=== PATIENT | male | born 1945 | race Caucasian/White ===

== ENCOUNTER 2024-06-05 16:57 | Emergency (ER) | payer MEDICARE, OTHER ==
[~2024-06-05] VITALS: Ht 170.2 cm; Wt 68.0 kg
[2024-06-05 17:06] VITALS: TEMP 97.5
--- NOTE | 2024-06-05 17:20 | NUR ---
BIB BLS TRANSPORT FROM FACILITY FOR ALMS AND INCREASED AGITATION.
--- NOTE | 2024-06-05 17:45 | NUR ---
[employer] AT BEDSIDE FOR BLOOD WORKS
--- NOTE | 2024-06-05 17:48 | NUR ---
move sheet submitted
--- NOTE | 2024-06-05 18:05 | NUR ---
UA sent to lab
--- NOTE | 2024-06-05 18:05 | NUR ---
contacted nurse sup for bed assignment
[2024-06-05 18:06] LABS: BASOPHILS % (AUTO) 0.5 % (0.0-2.0); EOSINOPHILS # (AUTO) 0.2 K/uL (0.0-0.7); EOSINOPHILS % (AUTO) 2.8 % (0.0-6.0); HEMATOCRIT 38 % (39-51); HEMOGLOBIN 12.7 g/dL (13.5-17.5); LYMPHOCYTES # (AUTO) 1.7 K/uL (0.8-4.8); LYMPHOCYTES % (AUTO) 22.4 % (20.0-44.0); MEAN CORPUSCULAR HEMOGLOBIN 31 PG (26.0-33.0); MEAN CORPUSCULAR HGB CONC 33 g/dl (31.0-36.0); MEAN CORPUSCULAR VOLUME 94 fL (80-96); MONOCYTES # (AUTO) 0.7 K/uL (0.1-1.30); MONOCYTES % (AUTO) 8.9 % (2.0-12.0); NEUTROPHILS # (AUTO) 5.1 K/uL (1.8-8.9); NEUTROPHILS % (AUTO) 65.4 % (43.0-81.0); PLATELET COUNT (AUTO) 228 K/uL (150-450); RED BLOOD CELL COUNT(AUTO) 4.04 MIL/uL (4.5-6.0); RED CELL DISTRIBUTION WIDTH 15.1 % (11.5-15.0); WHITE BLOOD COUNT (AUTO) 7.8 K/uL (4.3-11.0)
[2024-06-05] MEDS ORDERED: ACET-868 PO ×2 (18:13)
[2024-06-05] MEDS ORDERED: BISA10SU11 RC (18:13)
[2024-06-05] MEDS ORDERED: MULT-619 PO (18:13)
[2024-06-05] MEDS ORDERED: TRAZ-257 PO (18:13)
[2024-06-05] MEDS ORDERED: DOCU100T2 PO (18:13)
[2024-06-05] MEDS ORDERED: POLY17PO4 PO (18:13)
[2024-06-05] MEDS ORDERED: MAGN400O6 PO (18:13)
[2024-06-05] MEDS ORDERED: CYAN500T9 PO (18:13)
[2024-06-05] MEDS ORDERED: ACET-2030 PO (18:13)
[2024-06-05] MEDS ORDERED: LORA-259 PO (18:13)
[2024-06-05] MEDS ORDERED: QUET50TA PO (18:13)
[2024-06-05] MEDS ORDERED: SERT50TA PO (18:13)
[2024-06-05] MEDS ORDERED: SENN-18 PO (18:13)
[2024-06-05] MEDS ORDERED: PANT40TA2 PO (18:13)
[2024-06-05] MEDS ORDERED: NA P133E RC (18:13)
--- NOTE | 2024-06-05 18:14 | NUR ---
MRSA sent to lab
[2024-06-05 18:32] LABS: APPEARANCE,URINE Clear (CLEAR); BILIRUBIN,URINE Negative (NEGATIVE); BLOOD, URINE Moderate Ery/uL (NEGATIVE); COLOR,URINE YELLOW (YELLOW); KETONES,URINE Negative (NEGATIVE); LEUKOCYTE ESTERASE ,URINE Small (NEGATIVE); NITRITE, URINE Negative (NEGATIVE); PH,URINE 5.5 (5.0-8.0); PROTEIN,URINE Negative (NEGATIVE); UGLUCOSE Negative (NEGATIVE); UROBILINOGEN,URINE 0.2 EU/dL (0.2)
[2024-06-05 18:33] LABS: ADD URINE CULTURE YES; BACTERIA,URINE Few /HPF (None Seen); SQUAMOUS EPITHELIAL CELL,UR Rare /HPF (None Seen)
[2024-06-05 18:34] VITALS: BP 124/76; O2SAT 98
--- NOTE | 2024-06-05 19:15 | NUR ---
Per Nicole Levine and staff from pt's facility, pt needs to be sent back to the facility ([facility]). Once ready, arrange transport back to [facility].
[2024-06-05 19:23] LABS: CARBON DIOXIDE 31 mmol/L (21-32); CHLORIDE 107 mmol/L (98-107); CREATININE 1.2 mg/dL (0.6-1.3); GLUCOSE 74 mg/dL (74-106); POTASSIUM 3.7 mmol/L (3.5-5.1); SODIUM SERUM 144 mmol/L (136-145); UREA NITROGEN, BLOOD 41 mg/dL (7-18)
--- NOTE | 2024-06-05 19:40 | NUR ---
Tuyet (staff from [facility]):[phone]
--- NOTE | 2024-06-05 19:51 | NUR ---
[facility] contacted for transport home. [id number]
--- NOTE | 2024-06-05 21:23 | NUR ---
PATIENT PICKED UP BY [facility] STAFF AND REPORT WAS GIVEN GOING BACK TO [facility].
== END 2024-06-05 21:23 ==
LOC: ER 17:03
DX: R45.1 Restlessness and agitation (principal); G30.9 Alzheimer's disease, unspecified; F02.80 Dementia in other diseases classified elsewhere, unspecified severity, without behavioral disturbance, psychotic disturbance, mood disturbance, and anxiety; I25.10 Atherosclerotic heart disease of native coronary artery without angina pectoris; K21.9 Gastro-esophageal reflux disease without esophagitis; F32.A Depression, unspecified; F20.9 Schizophrenia, unspecified; Z79.1 Long term (current) use of non-steroidal anti-inflammatories (NSAID); Z79.899 Other long term (current) drug therapy
CPT/HCPCS: 36415; 71045-TC; 80048-TC; 81001; 84443-TC; 85025-TC; 87081-TC; 87086-TC